=== PATIENT | female | born 1950 | race Caucasian/White ===

== ENCOUNTER 2021-07-13 11:07 | Emergency (ER) | payer MEDICARE, OTHER ==
[~2021-07-13] VITALS: Ht 154.9 cm; Wt 64.5 kg
[2021-07-13] MEDS ORDERED: NEURONTIN100 MG/CAP PO (12:24)
[2021-07-13] MEDS ORDERED: MEDROL 4MG DOSPA4 MG PO (12:24)
[2021-07-13 12:40] VITALS: BP 145/77; PULSE 66; TEMP 97.8
== END 2021-07-13 12:41 | disposition home or self-care (01) ==
LOC: COL.ER 11:07
DX: M54.42 Lumbago with sciatica, left side (principal); I10 Essential (primary) hypertension
CPT/HCPCS: J1885

== ENCOUNTER 2021-09-27 18:38 | Emergency (ER) | payer MEDICARE, OTHER ==
[~2021-09-27] VITALS: Ht 154.9 cm; Wt 65.9 kg
[~2021-09-27 18:38] MED LIST: MEDROL 4MG DOSPA4 MG PO; NEURONTIN100 MG/CAP PO
[2021-09-27 19:17] VITALS: TEMP 98.1
[2021-09-27 22:38] VITALS: BP 162/80; PULSE 70
== END 2021-09-27 22:38 | disposition home or self-care (01) ==
LOC: COL.ER 18:38
DX: S09.90XA Unspecified injury of head, initial encounter (principal); S60.211A Contusion of right wrist, initial encounter; S80.812A Abrasion, left lower leg, initial encounter; G89.29 Other chronic pain; M54.9 Dorsalgia, unspecified; Z79.899 Other long term (current) drug therapy; W01.198A Fall on same level from slipping, tripping and stumbling with subsequent striking against other object, initial encounter; Y93.01 Activity, walking, marching and hiking

== ENCOUNTER 2021-10-10 15:48 | Emergency (ER) | payer MEDICARE, OTHER ==
[~2021-10-10] VITALS: Ht 154.9 cm; Wt 63.6 kg
[2021-10-10 15:55] VITALS: TEMP 97.8
[2021-10-10 18:37] LABS: HEMOGLOBIN 10.3 g/dl (12.5-16.0); MEAN CELL VOLUME 89 fl (80.0-100.0); MEAN CORPUSCULAR HEMOGLOBIN 28 pg (27-31); MEAN CORPUSCULAR HGB CONC 31 g/dl (33.0-37.0); MEAN PLATELET VOLUME 9.8 fl (7.4-10.4); PLATELET COUNT 177 K/mm3 (130-400); RED BLOOD COUNT 3.73 M/mm3 (4.10-5.30)
[2021-10-10 18:43] LABS: HEMATOCRIT 33.1 % (37.0-47.0)
[2021-10-10 18:55] LABS: ALBUMIN 4.3 gm/dL (3.4-4.8); BILIRUBIN,TOTAL 0.4 mg/dL (0.2-1.2); CALCIUM 8.9 mg/dL (8.4-10.2); CREATININE, serum 0.85 mg/dL (0.57-1.11); POTASSIUM 3.7 mmol/L (3.5-4.5); TOTAL PROTEIN 7.4 gm/dL (6.2-8.1)
[2021-10-10 19:05] LABS: TROPONIN-I 0.013 ng/mL (0.00-0.033)
[2021-10-10 19:36] LABS: BASOPHIL 1 % (0-2); HYPOCHROMIA 1+; LYMPHOCYTE 33 % (20.0-51.0); NEUTROPHILS 56 % (42.0-75.2); OVALOCYTES 1+
[2021-10-10] MEDS ORDERED: LEVAQUIN 5500 MG/TA1 PO (19:55)
[2021-10-11 02:00] VITALS: BP 146/78; PULSE 78
== END 2021-10-11 | disposition home or self-care (01) ==
LOC: COL.ER 15:48
PROVIDERS: Emergency Medicine
DX: J18.9 Pneumonia, unspecified organism (principal); I10 Essential (primary) hypertension; G89.29 Other chronic pain; M54.9 Dorsalgia, unspecified; Z20.822 Contact with and (suspected) exposure to COVID-19

== ENCOUNTER → 2021-11-14 | Outpatient (CLI) | payer MEDICARE, OTHER ==
[~2021-11-14] MED LIST changes: +LEVAQUIN 5500 MG/TA1 PO
== END ==
LOC: MHCPAIN 13:03
DX: M54.16 Radiculopathy, lumbar region (principal); M54.50 Low back pain, unspecified; M41.80 Other forms of scoliosis, site unspecified; M53.3 Sacrococcygeal disorders, not elsewhere classified

== ENCOUNTER → 2021-11-18 | Outpatient (CLI) | payer MEDICARE, OTHER | LOC: MHCPAIN 11-14 13:08 | DX: M54.16 Radiculopathy, lumbar region (principal); M53.3 Sacrococcygeal disorders, not elsewhere classified; M47.817 Spondylosis without myelopathy or radiculopathy, lumbosacral region | CPT/HCPCS: J1100; Q9967 ==

== ENCOUNTER → 2021-12-15 | Outpatient (CLI) | payer MEDICARE, OTHER | LOC: MHCPAIN 13:35 | DX: M54.50 Low back pain, unspecified (principal); M54.16 Radiculopathy, lumbar region; M53.3 Sacrococcygeal disorders, not elsewhere classified | CPT/HCPCS: G0463 ==

== ENCOUNTER → 2022-01-26 | Outpatient (CLI) | payer MEDICARE, OTHER | LOC: MHCPAIN 10:55 | DX: M47.817 Spondylosis without myelopathy or radiculopathy, lumbosacral region (principal); M54.16 Radiculopathy, lumbar region; M54.50 Low back pain, unspecified; M53.3 Sacrococcygeal disorders, not elsewhere classified | CPT/HCPCS: G0463; J1100; Q9967 ==

== ENCOUNTER → 2022-03-10 | Outpatient (CLI) | payer MEDICARE, OTHER | LOC: MHCPAIN 10:29 | DX: M54.16 Radiculopathy, lumbar region (principal); M41.80 Other forms of scoliosis, site unspecified; M25.561 Pain in right knee; M54.50 Low back pain, unspecified | CPT/HCPCS: G0463 ==

== ENCOUNTER → 2022-03-10 | Outpatient (CLI) | payer MEDICARE, OTHER | LOC: COL.RAD 11:12 | DX: M25.561 Pain in right knee (principal) ==

== ENCOUNTER → 2022-04-06 | Outpatient (CLI) | payer MEDICARE, OTHER | LOC: MHCPAIN 12:41 | DX: M47.817 Spondylosis without myelopathy or radiculopathy, lumbosacral region (principal); M53.3 Sacrococcygeal disorders, not elsewhere classified; M54.16 Radiculopathy, lumbar region | CPT/HCPCS: J1100; Q9967 ==

== ENCOUNTER → 2022-05-06 | Outpatient (CLI) | payer MEDICARE, OTHER | LOC: MHCPAIN 10:29 | DX: M54.16 Radiculopathy, lumbar region (principal); M41.86 Other forms of scoliosis, lumbar region; M25.561 Pain in right knee | CPT/HCPCS: G0463 ==

== ENCOUNTER → 2022-06-17 | Outpatient (CLI) | payer MEDICARE, OTHER | LOC: MHCPAIN 15:29 | DX: M54.50 Low back pain, unspecified (principal); M54.16 Radiculopathy, lumbar region; M41.86 Other forms of scoliosis, lumbar region; M25.561 Pain in right knee | CPT/HCPCS: G0463 ==

== ENCOUNTER → 2022-07-14 | Outpatient (CLI) | payer MEDICARE, OTHER | LOC: MHCPAIN 15:20 | DX: M54.59 Other low back pain (principal); M25.561 Pain in right knee; M54.6 Pain in thoracic spine; M54.16 Radiculopathy, lumbar region; M41.26 Other idiopathic scoliosis, lumbar region | CPT/HCPCS: G0463 ==

== ENCOUNTER 2023-10-26 08:06 | Day surgery (SDC) | payer MEDICARE, OTHER ==
[2023-10-26] VITALS (10 sets, daily range): BP systolic 117–147; BP diastolic 58–98; PULSE 12–68
[~2023-10-26] VITALS: Ht 154.9 cm; Wt 62.6 kg
[2023-10-26 09:22] LABS: HEMOGLOBIN 12.5 g/dl (12.5-16.0); MEAN CELL VOLUME 106 fl (80.0-100.0); MEAN CORPUSCULAR HEMOGLOBIN 37 pg (27-31); MEAN CORPUSCULAR HGB CONC 35 g/dl (33.0-37.0); MEAN PLATELET VOLUME 9.7 fl (7.4-10.4); PLATELET COUNT 169 K/mm3 (130-400); REDCELL DISTRIBUTION WIDTH-CV 12.8 % (11.5-14.5)
[2023-10-26 09:34] LABS: INR 1.1 (0.8-3.0); PROTHROMBIN TIME 11.8 SECONDS (9.7-12.8)
[2023-10-26] MEDS ORDERED: LIDODERM 5% PATC1 EA TP (09:36)
[2023-10-26] MEDS ORDERED: PRINIVIL40 MG PO (09:36)
[2023-10-26 09:37] LABS: PARTIAL THROMBOPLASTIN TIME 31.9 SECONDS (26.0-37.0)
[2023-10-26] MEDS ORDERED: NORVASC 10MG10 MG PO (09:37)
[2023-10-26] MEDS ORDERED: LIPITOR20 MG PO (09:37)
[2023-10-26 09:38] LABS: CALCIUM 9.2 mg/dL (8.4-10.2); CREATININE, serum 0.8 mg/dL (0.57-1.11); POTASSIUM 3.3 mmol/L (3.5-4.5)
[2023-10-26] MEDS ORDERED: INDERAL80 MG PO (09:38)
[2023-10-26] MEDS ORDERED: PERCOCET 325 MG1 TA3 PO (09:39)
[2023-10-26] MEDS ORDERED: CLARITIN 1010 MG/TAB PO (09:39)
[2023-10-26] MEDS ORDERED: ONE-A-DAY WOMEN1 TAB PO (09:40)
[2023-10-26] MEDS ORDERED: SLOW FE137 M1 PO (09:40)
--- NOTE | 2023-10-26 10:03 | NUR ---
See merge for all medication, assessment, intervention, and vital sign times.
--- NOTE | 2023-10-26 11:06 | NUR ---
Bedside report completed with Kiah YAP. First set of vitals reviewed, insertion site reviewed, fluid going at 100ml/hr via dial flow reviewed. Call light within reach. Kiah YAP denies questions concerns at this time.
[2023-10-26] MEDS ORDERED: IMDUR 60MG60 MG/TAB PO (12:49)
--- NOTE | 2023-10-26 14:03 | NUR ---
pt tolerated recovery period well. she was assisted to main lobby via wheelchair and vs remained within normal limits. IV discontinued upon discharge. pt verbalized understanding of discharge instructions and remained free from acute concerns and complaints upon discharge.
== END 2023-10-26 14:06 | disposition home or self-care (01) ==
LOC: COL.CAR 08:06
PROVIDERS: Internal Medicine Cardiovascular Disease
DX: I25.10 Atherosclerotic heart disease of native coronary artery without angina pectoris (principal); R94.39 Abnormal result of other cardiovascular function study
CPT/HCPCS: C1769; C1887; J0153; J0583; J1644; J2250; J3010; Q9967